=== PATIENT | female | born 1995 | race African-American/Black ===

== ENCOUNTER → 2018-04-13 | Outpatient (CLI) | payer SELFPAY ==
--- NOTE | 2018-04-13 14:51 | RADIOLOGY REPORT (SQ) ---
EXAM DESCRIPTION: U/S [id number] TRNABD 1GES W/ODOP COMPLETED DATE/TIME: 04/13/2018 2:36 pm REASON FOR STUDY: Z34.01 ENCOUNTER FOR SUPERVISION OF NORMAL FIRST , FIRST TRIMESTER Z34.01 ENCNTR FOR SUPRVSN OF NORMAL FIRST PREG, FIRST TRIMES COMPARISON: None. TECHNIQUE: Transabdominal static and realtime grayscale images acquired of the pelvis. Additional se lected spectral and color Doppler images recorded. All images stored on PACs. bHCG: Not available CLINICAL DATES: Last menses 02/01/2018 LIMITATIONS: None. FINDINGS: FETUS: Single Living intrauterine . ULTRASOUND EGA: 10 weeks 5 days ULTRASOUND ADRIEL: 11/04/2018 EFW: Not applicable less than 20 weeks. CRL: 3.9 cm FHR: 180 beats per minute. SURVEY: Too early to assess. AMNIOTIC FLUID: Adequate amount. PLACENTA: Not yet developed due to early gestation. SUBCHORIONIC BLEED: No SIZE OF BLEED: Not applicable. UTERUS: No masses. No anomalies. Uterus is 9.4 x 6.7 x 5.7 cm in size CERVICAL LENGTH: 4 cm Closed. RIGHT ADNEXA: Ovary not identified due to poor acoustical window. No adnexal free fluid. No adnexal masses. LEFT ADNEXA: Ovary not identified due to poor acoustical window. No adnexal free fluid. No adnexal masses. FREE FLUID: None. OTHER: No other significant finding. IMPRESSION: LIVING INTRAUTERINE . EGA 10 weeks 5 days Trimester of : First - 0 to 13 weeks. TECHNICAL DOCUMENTATION: JOB ID: [id number] [email or web address]- All Rights Reserved rev Reading location - IP/workstation name: [facility]
== END ==
LOC: RAD 14:01
PROVIDERS: ATTEND Nurse Practitioner
DX: Z34.01 Encounter for supervision of normal first pregnancy, first trimester (principal)
CPT/HCPCS: 76801

== ENCOUNTER 2018-04-16 12:56 | Emergency (ER) | payer MEDICAID ==
[2018-04-16 13:04] VITALS: BP 147/86
--- NOTE | 2018-04-16 14:20 | ER Document Report ---
ED ENT - General Chief Complaint: Ear Pain Stated Complaint: LEFT EAR IRRITATION Time Seen by Provider: 04/16/18 14:05 Mode of Arrival: Ambulatory Notes: 22-year-old female presents to ED for decreased hearing in her left ear. She states it feels like it popped but when she tried to pop it with her nose and did not clear all the way. She states she has been using Q-tips. She states she is also had runny nose cough and congestion but she cannot take cold medicine because she is 10 weeks . Patient is alert and oriented respirations regular and unlabored speaking in clear full sentences and walks with a even steady gait. Patient is in no acute distress and denies any discomfort at this time. TRAVEL OUTSIDE OF THE [place] IN LAST 30 DAYS: No - HPI Patient complains to provider of: Ear problem, Nose problem Onset: Other - Cough and cold symptoms for "a little while " Onset/Duration: Gradual Quality of pain: Achy Severity: Mild Pain Level: 1 Context: Recent Illness Location of pain: Ears - Clogged ear with decreased hearing to the clogged ear Similar symptoms previously: Yes Recently seen / treated by doctor: Yes Past Medical History - General Information source: Patient - Social History Smoking Status: Never Smoker Cigarette use (# per day): No Chew tobacco use (# tins/day): No Smoking Education Provided: No Frequency of alcohol use: None Drug Abuse: None Lives with: Alone Family History: None Patient has suicidal ideation: No Patient has homicidal ideation: No - Past Medical History Cardiac Medical History: Reports: None Pulmonary Medical History: Reports: None EENT Medical History: Reports: None Neurological Medical History: Reports: None Endocrine Medical History: Reports: None Renal/ Medical History: Reports: None Malignancy Medical History: Reports: None GI Medical History: Reports: None Musculoskeletal Medical History: Reports None Skin Medical History: Reports None Psychiatric Medical History: Reports: None Traumatic Medical History: Reports: None Infectious Medical History: Reports: None Surgical Hx: Negative Past Surgical History: Reports: None - Immunizations Immunizations up to date: Yes Hx Diphtheria, Pertussis, Tetanus Vaccination: Yes Review of Systems - Review of Systems Notes: REVIEW OF SYSTEMS: CONSTITUTIONAL : Denies fever, chills, or sweats. Mild cold symptoms EENT: Denies eye, ear, throat, or mouth pain or symptoms. Denies throat, tongue, or mouth swelling or difficulty swallowing. Patient states she has had some nasal drainage and congestion but she cannot take all medicine as she is 10 weeks . She states she has had clogged ears and she tried to pop her ears and it did not only cleared a little bit. She states she has been using Q-tips in her ears. CARDIOVASCULAR: Denies chest pain. Denies palpitations or racing or irregular heart beat. Denies ankle edema. RESPIRATORY: Denies cough, cold, or chest congestion. Denies shortness of breath, difficulty breathing, or wheezing. GASTROINTESTINAL: Denies abdominal pain or distention. Denies nausea, vomiting , or diarrhea. Denies blood in vomitus, stools, or per rectum. Denies black, tarry stools. Denies constipation. GENITOURINARY: Denies difficulty urinating, painful urination, burning, frequency, blood in urine, or discharge. FEMALE GENITOURINARY: Denies vaginal bleeding, heavy or abnormal periods, irregular periods. Denies vaginal discharge or odor. MUSCULOSKELETAL: Denies back or neck pain or stiffness. Denies joint pain or swelling. SKIN: Denies rash, lesions or sores. HEMATOLOGIC : Denies easy bruising or bleeding. LYMPHATIC: Denies swollen, enlarged glands. NEUROLOGICAL: Denies confusion or altered mental status. Denies passing out or loss of consciousness. Denies dizziness or lightheadedness. Denies headache. Denies weakness or paralysis or loss of use of either side. Denies problems with gait or speech. Denies sensory loss, numbness, or tingling. Denies seizures. PHYSICAL EXAMINATION: GENERAL: Well-appearing, well-nourished and in no acute distress. HEAD: Atraumatic, normocephalic. EYES: Pupils equal round and reactive to light, extraocular movements intact, conjunctiva are normal. ENT: Nares patent mild rhinorrhea with mild swelling to the nasal passage, oropharynx clear without exudates postnasal drip. Moist mucous membranes. Cerumen impaction to bilateral ears. Patient states she uses Q-tips. NECK: Normal range of motion, supple without lymphadenopathy LUNGS: Breath sounds clear to auscultation bilaterally and equal. No wheezes rales or rhonchi. HEART: Regular rate and rhythm without murmurs ABDOMEN: Soft, nontender, nondistended abdomen. No guarding, no rebound. No masses appreciated. Female : deferred Musculoskeletal: Normal range of motion, no pitting or edema. No cyanosis. NEUROLOGICAL: Cranial nerves grossly intact. Normal speech, normal gait. Normal sensory, motor exams PSYCH: Normal mood, normal affect. SKIN: Warm, Dry, normal turgor, no rashes or lesions noted. PSYCHIATRIC: Denies anxiety or stress. Denies depression, suicidal ideation, or homicidal ideation. ALL OTHER SYSTEMS REVIEWED AND NEGATIVE. Dictation was performed using [employer] voice recognition software Physical Exam - Vital signs Vitals: Temp Pulse Resp BP Pulse Ox 98.7 F 111 H 18 147/86 H 100 04/16/18 13:03 04/16/18 13:03 04/16/18 13:03 04/16/18 13:03 04/16/18 13:03 Course - Vital Signs Vital signs: Temp Pulse Resp BP Pulse Ox 98.7 F 111 H 18 147/86 H 100 04/16/18 13:03 04/16/18 13:03 04/16/18 13:03 04/16/18 13:03 04/16/18 13:03 Discharge - Discharge Clinical Impression: Impacted cerumen of both ears Condition: Stable Disposition: HOME, SELF-CARE Additional Instructions: Cerumen Impaction The physician found a severe buildup of earwax in your ear canal, called a cerumen impaction. A large plug of wax can cause earache, decreased hearing, or itching. It can even lead to infection of the outer ear. An impaction of earwax can be removed by the physician using special instruments, or can be irrigated out using a stream of water (often a little of both is required). Some less severe impactions are removed using ear drops that dissolve wax. In the future, don't get soap in your ear canal. Soap doesn't remove wax - - it simply hardens it in place. Don't use cotton swabs. These just push the wax into large clumps, where it doesn't flow out normally. Dust and smoke also contribute to wax buildup. Earwax softening drops are available without prescription, and can be used periodically. Contact the doctor if you develop decreased hearing, earache, drainage from the ear, or severe headache. If you get Colace capsules from the pharmacy you can take a nail and punctured a hole in the capsule and squeezed the juice from the capsule into your ear. Let it sit for 20-30 minutes to soften up the wax. Then flushed your ear with one half peroxide one half warm water this will make it easier to get the wax out of your ear. Please do not use Q-tips in your ear. FOLLOW-UP CARE: If you have been referred to a physician for follow-up care, call the physician s office for an appointment as you were instructed or within the next two days. If you experience worsening or a significant change in your symptoms, notify the physician immediately or return to the Emergency Department at any time for re-evaluation. Forms: Elevated Blood Pressure, Return to Work Referrals: WILDER MO APRN [NO LOCAL MD] - Follow up as needed
== END 2018-04-16 15:08 | disposition home or self-care (01) ==
LOC: ER 12:56
DX: O26.891 Other specified pregnancy related conditions, first trimester (principal); H61.23 Impacted cerumen, bilateral; R09.89 Other specified symptoms and signs involving the circulatory and respiratory systems; R05 Cough; Z3A.10 10 weeks gestation of pregnancy
CPT/HCPCS: 99282

== ENCOUNTER 2018-07-26 12:09 | Emergency (ER) | payer MEDICAID ==
[2018-07-26 12:15] VITALS: BP 152/86
--- NOTE | 2018-07-26 12:33 | ER Document Report ---
HPI - HPI Time Seen by Provider: 07/26/18 12:15 Pain Level: 2 Notes: Patient is a 24-year-old female approx 25wks who presents to the ED complaining of nasal congestion/discharge, dry nonproductive cough, body ache 3-4 days. Patient states that she is still eating and drinking without difficulties. She is still urinating normally having normal bowel movements. Patient has been using some [id number] meds for symptoms. She denies any significant past medical history including cardiopulmonary history and immunocompromised conditions aside from mild asthma which she has inhalers for. Patient denies any smoking or IV drug use. Denies any fever, current headache, neck pain, sore throat, chest pain, palpitations, syncope, shortness of breath, wheeze, dyspnea, abdominal pain, nausea/vomiting/diarrhea, urinary retention, dysuria, hematuria, or rash. - ROS Systems Reviewed and Negative: Yes All other systems reviewed and negative - CONSTITUTIONAL Constitutional: REPORTS: Fever - EENT EENT: REPORTS: Sore Throat - RESPIRATORY Respiratory: REPORTS: Coughing - REPRODUCTIVE Reproductive: DENIES: : Past Medical History - Social History Smoking Status: Never Smoker Frequency of alcohol use: None Drug Abuse: None Family History: None Patient has suicidal ideation: No Patient has homicidal ideation: No Pulmonary Medical History: Reports: Hx Asthma Renal/ Medical History: Denies: Hx Peritoneal Dialysis - Immunizations Immunizations up to date: Yes Hx Diphtheria, Pertussis, Tetanus Vaccination: Yes Vertical Provider Document - CONSTITUTIONAL Agree With Documented VS: Yes Notes: PHYSICAL EXAMINATION: GENERAL: Well-appearing, well-nourished and in no acute distress. A&Ox4. Answers questions appropriately. Moves comfortably w/o notable distress HEAD: Atraumatic, normocephalic. EYES: Pupils equal round and reactive to light, extraocular movements intact, sclera anicteric, conjunctiva are normal. ENT: EAC clear b/l. TM's intact b/l without erythema, fluid, or perforation. Nares patent and with clear discharge. oropharynx no erythema without exudates. No tonsilar hypertrophy without erythema or exudate. No palatine shift. Uvula midline. No tongue protrusion. No drooling, hoarseness, or airway compromise. Moist mucous membranes. No sinus tenderness. NECK: Normal range of motion, supple without lymphadenopathy. No rigidity/meningismus. LUNGS: Scant wheeze left side, no crackles/rhonchi. No retractions HEART: Regular rate and rhythm without murmurs, rubs, gallops. ABDOMEN: Soft, nontender, nondistended abdomen. No guarding, no rebound. Normal bowel sounds present. No CVA tenderness bilaterally. NEUROLOGICAL: Normal speech, normal gait. PSYCH: Normal mood, normal affect. SKIN: Warm, Dry, normal turgor, no rashes or lesions noted. - INFECTION CONTROL TRAVEL OUTSIDE OF THE [place] IN LAST 30 DAYS: No Course - Re-evaluation Re-evalutation: 07/26/18 12:31 Patient is an afebrile, well-hydrated, 19-year-old female who presents to the ED with acute URI, suspect viral vs influenza, but she has not had any fever so favoring other viral illness. Vitals are acceptable. PE is otherwise unrema rkable. No labs or imaging warranted at this time based on H&P. Patient has no significant cardiopulmonary or immunocompromised medical conditions. Patient's lungs are clear to auscultation bilaterally without tachycardia, hypoxia, or tachypnea. Patient is tolerating p.o. without any difficulties. Pt beyond treatment window with tamiflu. Low suspicion for any meningitis, sepsis, peritonsillar/pharyngeal abscess, respiratory compromise, severe dehydration, or other emergent systemic condition at this time. Patient is aware this condition can change from initial presentation and she needs to monitor symptoms closely. Conservative measures otherwise for symptoms. Recheck with your PCM/OBGYN in 2- 3 days. Return to the ED with any worsening/concerning symptoms otherwise as reviewed in discharge. Patient is in agreement. - Vital Signs Vital signs: Temp Pulse Resp BP Pulse Ox 97.8 F 112 H 20 152/86 H 100 07/26/18 12:14 07/26/18 12:14 07/26/18 12:14 07/26/18 12:14 07/26/18 12:14 Discharge - Discharge Clinical Impression: Acute URI Condition: Stable Disposition: HOME, SELF-CARE Additional Instructions: Maintain adequate fluid intake Use inhalers as directed tylenol as needed over the counter cold medication as needed for symptoms Humidified air may help Wash your hands regularly Wear a mask when coughing Your blood pressure is elevated and will need evaluated by OBGYN as your are F/u: with your PCM/OBGYN in 2-3 days for a recheck Return to the ED with any fever, worsening pain, chest pain, palpitations, syncope, worsening ROMEO, neck pain/stiffness, shortness of breath, wheezing, drooling, trouble swallowing/breathing, abdominal pain, n/v/d, rash, or worsening/concerning symptoms otherwise. Forms: Elevated Blood Pressure Referrals: [facility] [Provider Group] - 07/29/18
== END 2018-07-26 12:37 | disposition home or self-care (01) ==
LOC: ER 12:09
DX: O99.519 Diseases of the respiratory system complicating pregnancy, unspecified trimester (principal); J06.9 Acute upper respiratory infection, unspecified; J45.909 Unspecified asthma, uncomplicated; J02.9 Acute pharyngitis, unspecified; O26.899 Other specified pregnancy related conditions, unspecified trimester; R05 Cough; Z3A.00 Weeks of gestation of pregnancy not specified
CPT/HCPCS: 99283

== ENCOUNTER 2018-09-30 16:35 | Outpatient (CLI) | payer MEDICAID ==
[2018-09-30 17:25] LABS: ABSOLUTE BASOPHILS # (AUTO) 0.1 10^3/uL (0.0-0.2); ABSOLUTE EOSINOPHILS # (AUTO) 0.2 10^3/uL (0.0-0.6); ABSOLUTE LYMPHOCYTES (AUTO) 1.8 10^3/uL (0.5-4.7); ABSOLUTE MONOCYTES (AUTO) 1.2 10^3/uL (0.1-1.4); ABSOLUTE NEUT (AUTO) 7.6 10^3/uL (1.7-8.2); BASOPHILS % (AUTO) 0.6 % (0-2); EOSINOPHILS % (AUTO) 1.7 % (0-6); HEMATOCRIT 32.7 % (36.0-47.0); HEMOGLOBIN 10.4 g/dL (12.0-15.5); LYMPHOCYTES % (AUTO) 16.6 % (13-45); MEAN CORPUSCULAR HEMOGLOBIN 23.9 pg (27.0-33.4); MEAN CORPUSCULAR HGB CONC 31.9 g/dL (32.0-36.0); MEAN CORPUSCULAR VOLUME 75 fl (80-97); MONOCYTES % (AUTO) 10.7 % (3-13); PLATELET COUNT 325 10^3/uL (150-450); RED BLOOD COUNT 4.36 10^6/uL (3.72-5.28); RED CELL DISTRIBUTION WIDTH 14.8 % (11.5-14.0); SEGMENTED NEUTROPHILS % (AUTO) 70.4 % (42-78); TOTAL CELLS COUNTED % (AUTO) 100 %; WHITE BLOOD COUNT 10.8 10^3/uL (4.0-10.5)
--- NOTE | 2018-09-30 17:39 | Non Stress Test Report ---
Non Stress Test Datetime Report Generated by CPN: 09/30/2018 17:39 DEMOGRAPHIC EGA NST: 34.3 INDICATION Indication for Study: Ordered by Provider MONITORING Monitor Explained: Monitor Explained; Test Explained; Patient Verbalized Understanding Time on Monitor: 09/30/2018 16:50 Time off Monitor: 09/30/2018 17:37 NST Duration: 47 NST INTERVENTIONS NST Interventions: None Physician Notified NST: Dr. Jacobo BABY A: [id number] BABY A Movement : Present Contraction Frequency : occasional FHR Baseline : 150 Accelerations : 15X15 Decelerations : None Variability : Moderate 6-25bpm NST Review: Meets Criteria for Reactive NST NST Review and Verified By : Candelario BRWONE RN NST Results: Reactive NST REPORT Report Trigger: Send Report
[2018-09-30 17:42] LABS: ALANINE AMINOTRANSFERASE 20 U/L (9-52); ALBUMIN 3.8 g/dL (3.5-5.0); ALKALINE PHOSPHATASE 112 U/L (38-126); ANION GAP 11 (5-19); ASPARTATE AMINO TRANSFERASE 16 U/L (14-36); BILIRUBIN,DIRECT 0.2 mg/dL (0.0-0.4); BILIRUBIN,TOTAL 0.5 mg/dL (0.2-1.3); BLOOD UREA NITROGEN 5 mg/dL (7-20); CALCIUM 9.3 mg/dL (8.4-10.2); CARBON DIOXIDE 21 mmol/L (22-30); CHLORIDE 104 mmol/L (98-107); GLUCOSE 82 mg/dL (75-110); POTASSIUM 3.6 mmol/L (3.6-5.0); SODIUM 136.2 mmol/L (137-145); TOTAL PROTEIN 7.1 g/dL (6.3-8.2); URIC ACID 3.8 mg/dL (2.5-6.2)
[2018-09-30 17:42] LABS: APPEARANCE,URINE SLIGHTLY-CLOUDY; BILIRUBIN,URINE NEGATIVE (NEGATIVE); COLOR,URINE STRAW; GLUCOSE, URINE NEGATIVE (NEGATIVE); KETONES,URINE NEGATIVE (NEGATIVE); LEUKOCYTE ESTERASE,URINE LARGE (NEGATIVE); NITRITE,URINE NEGATIVE (NEGATIVE); PROTEIN,URINE NEGATIVE (NEGATIVE); URINE SPECIFIC GRAVITY 1.002; UROBILINOGEN,URINE NEGATIVE mg/dL (<2.0)
[2018-09-30 17:54] LABS: URINE AMPHETAMINES SCREEN NEGATIVE; URINE BARBITURATES SCREEN NEGATIVE; URINE BENZODIAZEPINES SCREEN NEGATIVE; URINE COCAINE SCREEN NEGATIVE; URINE MARIJUANA (THC) SCREEN NEGATIVE; URINE METHADONE SCREEN NEGATIVE; URINE PHENCYCLIDINE SCREEN NEGATIVE
[2018-09-30 17:58] LABS: UR PRO/CREAT RATIO RESULT 0.7 mg/mg (0.0-0.2); URINE CREATININE 25.3 mg/dL (16-327); URINE PROTEIN 17.7 mg/dL (<12)
== END 2018-09-30 18:20 | disposition home or self-care (01) ==
LOC: LC 16:35
PROVIDERS: ATTEND Obstetrics & Gynecology
PROC: 4A1HXCZ Monitoring of Products of Conception, Cardiac Rate, External Approach (ICD-10-PCS; principal; 2018-09-30)
DX: Z34.93 Encounter for supervision of normal pregnancy, unspecified, third trimester (principal); Z3A.35 35 weeks gestation of pregnancy
CPT/HCPCS: 36415; 59025; 80053; 80307; 81001; 82570; 83615; 84156; 84550; 85025

== ENCOUNTER 2018-10-03 15:18 | Outpatient (CLI) | payer MEDICAID ==
--- NOTE | 2018-10-03 17:10 | Non Stress Test Report ---
Non Stress Test Datetime Report Generated by CPN: 10/03/2018 17:09 DEMOGRAPHIC Test Number: 2 EGA NST: 34.6 INDICATION Indication for Study: Ordered by Provider Indication for Study (NST) Other: Repeat NST URINE RESULTS Urine Protein, NST: Negative MONITORING Monitor Explained: Monitor Explained; Test Explained; Patient Verbalized Understanding Time on Monitor: 10/03/2018 16:24 Time off Monitor: 10/03/2018 16:54 NST Duration: 30 NST INTERVENTIONS NST Interventions: PO Hydration; Meal Given; Reposition Patient Physician Notified NST: K. Henson CNM BABY A: [id number] BABY A Movement : Present Contraction Frequency : 0 FHR Baseline : 135 Accelerations : 15X15 Decelerations : None Variability : Moderate 6-25bpm NST Review: Meets Criteria for Reactive NST NST Review and Verified By : KAROL SAMUELS RN NST Results: Reactive NST REPORT Report Trigger: Send Report
== END 2018-10-03 17:10 | disposition home or self-care (01) ==
LOC: LC 15:18
PROVIDERS: ATTEND Obstetrics & Gynecology Gynecology
PROC: 4A1HXCZ Monitoring of Products of Conception, Cardiac Rate, External Approach (ICD-10-PCS; principal; 2018-10-03)
DX: O16.3 Unspecified maternal hypertension, third trimester (principal); Z3A.34 34 weeks gestation of pregnancy
CPT/HCPCS: 59025

== ENCOUNTER 2018-10-10 14:20 | Outpatient (CLI) | payer MEDICAID ==
--- NOTE | 2018-10-10 15:27 | Non Stress Test Report ---
Non Stress Test Datetime Report Generated by CPN: 10/10/2018 15:27 DEMOGRAPHIC EGA NST: 35.6 INDICATION Indication for Study: Chronic Hypertension; Ordered by Provider MONITORING Monitor Explained: Monitor Explained; Test Explained; Patient Verbalized Understanding Time on Monitor: 10/10/2018 14:33 Time off Monitor: 10/10/2018 15:17 NST Duration: 44 NST INTERVENTIONS NST Interventions: PO Hydration Physician Notified NST: Dr Aldridge BABY A: [id number] BABY A Movement : Present Contraction Frequency : 0 FHR Baseline : 135 Accelerations : 15X15 Decelerations : None Variability : Moderate 6-25bpm NST Review: Meets Criteria for Reactive NST NST Review and Verified By : Alexandru Medina RN NST Results: Reactive NST REPORT Report Trigger: Send Report
== END 2018-10-10 15:32 | disposition home or self-care (01) ==
LOC: LC 14:20
PROVIDERS: ATTEND Student in an Organized Health Care Education/Training Program
PROC: 4A1HXCZ Monitoring of Products of Conception, Cardiac Rate, External Approach (ICD-10-PCS; principal; 2018-10-10)
DX: O10.913 Unspecified pre-existing hypertension complicating pregnancy, third trimester (principal); Z3A.35 35 weeks gestation of pregnancy
CPT/HCPCS: 59025

== ENCOUNTER 2018-10-13 14:46 | Outpatient (CLI) | payer MEDICAID ==
--- NOTE | 2018-10-13 16:14 | Non Stress Test Report ---
Non Stress Test Datetime Report Generated by CPN: 10/13/2018 16:14 DEMOGRAPHIC EGA NST: 36.2 INDICATION Indication for Study: Chronic Hypertension MONITORING Monitor Explained: Monitor Explained; Test Explained; Patient Verbalized Understanding Time on Monitor: 10/13/2018 15:00 Time off Monitor: 10/13/2018 16:05 NST Duration: 65 NST INTERVENTIONS NST Interventions: PO Hydration Physician Notified NST: A. pacheco, CNM BABY A: [id number] BABY A Movement : Present Contraction Frequency : none FHR Baseline : 150 Accelerations : 15X15 Decelerations : None Variability : Moderate 6-25bpm NST Review: Meets Criteria for Reactive NST NST Review and Verified By : MANNY Fulton Results: Reactive NST COMMENTS NST Comments: A. Pacheco, CNM on unit reviewing strip, interpreted strip as reactive NST REPORT Report Trigger: Send Report
== END 2018-10-13 16:11 | disposition home or self-care (01) ==
LOC: LC 14:46
PROVIDERS: ATTEND Obstetrics & Gynecology Gynecology
PROC: 4A1HXCZ Monitoring of Products of Conception, Cardiac Rate, External Approach (ICD-10-PCS; principal; 2018-10-13)
DX: O10.913 Unspecified pre-existing hypertension complicating pregnancy, third trimester (principal); Z3A.36 36 weeks gestation of pregnancy

== ENCOUNTER 2018-10-20 15:14 | Outpatient (CLI) | payer MEDICAID ==
[2018-10-20 15:51] LABS: APPEARANCE,URINE CLEAR; BILIRUBIN,URINE NEGATIVE (NEGATIVE); COLOR,URINE STRAW; GLUCOSE, URINE NEGATIVE (NEGATIVE); KETONES,URINE NEGATIVE (NEGATIVE); LEUKOCYTE ESTERASE,URINE TRACE (NEGATIVE); NITRITE,URINE NEGATIVE (NEGATIVE); PROTEIN,URINE NEGATIVE (NEGATIVE); URINE SPECIFIC GRAVITY 1.005; UROBILINOGEN,URINE NEGATIVE mg/dL (<2.0)
[2018-10-20 16:19] LABS: URINE AMPHETAMINES SCREEN NEGATIVE; URINE BARBITURATES SCREEN NEGATIVE; URINE BENZODIAZEPINES SCREEN NEGATIVE; URINE COCAINE SCREEN NEGATIVE; URINE MARIJUANA (THC) SCREEN NEGATIVE; URINE METHADONE SCREEN NEGATIVE; URINE PHENCYCLIDINE SCREEN NEGATIVE
[2018-10-20 16:27] LABS: UR PRO/CREAT RATIO RESULT 0.3 mg/mg (0.0-0.2); URINE CREATININE 55.2 mg/dL (16-327); URINE PROTEIN 14.4 mg/dL (<12)
[2018-10-20 16:30] LABS: ABSOLUTE BASOPHILS # (AUTO) 0.1 10^3/uL (0.0-0.2); ABSOLUTE EOSINOPHILS # (AUTO) 0.1 10^3/uL (0.0-0.6); ABSOLUTE LYMPHOCYTES (AUTO) 1.2 10^3/uL (0.5-4.7); ABSOLUTE NEUT (AUTO) 6.6 10^3/uL (1.7-8.2); BASOPHILS % (AUTO) 0.7 % (0-2); EOSINOPHILS % (AUTO) 1.5 % (0-6); HEMATOCRIT 29.7 % (36.0-47.0); HEMOGLOBIN 9.3 g/dL (12.0-15.5); LYMPHOCYTES % (AUTO) 13.8 % (13-45); MEAN CORPUSCULAR HGB CONC 31.2 g/dL (32.0-36.0); MEAN CORPUSCULAR VOLUME 74 fl (80-97); MONOCYTES % (AUTO) 10.7 % (3-13); PLATELET COUNT 336 10^3/uL (150-450); RED BLOOD COUNT 4.04 10^6/uL (3.72-5.28); RED CELL DISTRIBUTION WIDTH 15.4 % (11.5-14.0); SEGMENTED NEUTROPHILS % (AUTO) 73.3 % (42-78); TOTAL CELLS COUNTED % (AUTO) 100 %
[2018-10-20 16:51] LABS: ALANINE AMINOTRANSFERASE 10 U/L (9-52); ALBUMIN 3.4 g/dL (3.5-5.0); ALKALINE PHOSPHATASE 101 U/L (38-126); ANION GAP 12 (5-19); ASPARTATE AMINO TRANSFERASE 18 U/L (14-36); BILIRUBIN,DIRECT 0.2 mg/dL (0.0-0.4); BILIRUBIN,TOTAL 0.6 mg/dL (0.2-1.3); BLOOD UREA NITROGEN 4 mg/dL (7-20); CALCIUM 9.1 mg/dL (8.4-10.2); CARBON DIOXIDE 23 mmol/L (22-30); CHLORIDE 104 mmol/L (98-107); GLUCOSE 72 mg/dL (75-110); POTASSIUM 3.9 mmol/L (3.6-5.0); SODIUM 138.8 mmol/L (137-145); TOTAL PROTEIN 6.2 g/dL (6.3-8.2); URIC ACID 4.4 mg/dL (2.5-6.2)
--- NOTE | 2018-10-20 19:18 | Non Stress Test Report ---
Non Stress Test Datetime Report Generated by CPN: 10/20/2018 19:18 DEMOGRAPHIC EGA NST: 37.2 INDICATION Indication for Study: Chronic Hypertension URINE RESULTS Urine Glucose - NST: Positive MONITORING Monitor Explained: Monitor Explained; Test Explained; Patient Verbalized Understanding Time on Monitor: 10/20/2018 15:33 Time off Monitor: 10/20/2018 16:40 NST Duration: 67 NST INTERVENTIONS NST Interventions: PO Hydration; Reposition Patient Physician Notified NST: P De Santiago BABY A: [id number] BABY A Movement : Present Contraction Frequency : 0 FHR Baseline : 135 Accelerations : 15X15 Variability : Moderate 6-25bpm NST Review: Meets Criteria for Reactive NST NST Review and Verified By : Kaylee Camp RNC NST Results: Reactive NST REPORT Report Trigger: Send Report
== END 2018-10-20 17:30 | disposition home or self-care (01) ==
LOC: LC 15:14
PROVIDERS: ATTEND Midwife
PROC: 4A1HXCZ Monitoring of Products of Conception, Cardiac Rate, External Approach (ICD-10-PCS; principal; 2018-10-20)
DX: O10.913 Unspecified pre-existing hypertension complicating pregnancy, third trimester (principal); Z3A.37 37 weeks gestation of pregnancy
CPT/HCPCS: 36415; 59025; 80053; 80307; 81001; 82570; 83615; 84156; 84550; 85025

== ENCOUNTER 2018-10-25 04:00 | Inpatient (IN) | payer MEDICAID ==
[2018-10-25] MEDS ORDERED: RINGERS SOLUTION,LACTATED 1,000 ML IV PRN (04:34)
[2018-10-25] MEDS ORDERED: DINOPROSTONE 10 MG VAGINAL INSERT.SR PV PRN (04:34)
[2018-10-25] MEDS ORDERED: RINGERS SOLUTION,LACTATED 300 ML IV ONE (04:34)
[2018-10-25 05:13] LABS: ABSOLUTE BASOPHILS # (AUTO) 0.1 10^3/uL (0.0-0.2); ABSOLUTE EOSINOPHILS # (AUTO) 0.2 10^3/uL (0.0-0.6); ABSOLUTE LYMPHOCYTES (AUTO) 1.6 10^3/uL (0.5-4.7); ABSOLUTE MONOCYTES (AUTO) 0.9 10^3/uL (0.1-1.4); ABSOLUTE NEUT (AUTO) 5.2 10^3/uL (1.7-8.2); EOSINOPHILS % (AUTO) 2.4 % (0-6); HEMATOCRIT 33.9 % (36.0-47.0); HEMOGLOBIN 10.7 g/dL (12.0-15.5); LYMPHOCYTES % (AUTO) 19.8 % (13-45); MEAN CORPUSCULAR HGB CONC 31.7 g/dL (32.0-36.0); MEAN CORPUSCULAR VOLUME 73 fl (80-97); MONOCYTES % (AUTO) 11.3 % (3-13); PLATELET COUNT 353 10^3/uL (150-450); RED BLOOD COUNT 4.67 10^6/uL (3.72-5.28); SEGMENTED NEUTROPHILS % (AUTO) 65.5 % (42-78); TOTAL CELLS COUNTED % (AUTO) 100 %
[2018-10-25 05:30] LABS: URINE AMPHETAMINES SCREEN NEGATIVE; URINE BARBITURATES SCREEN NEGATIVE; URINE BENZODIAZEPINES SCREEN NEGATIVE; URINE COCAINE SCREEN NEGATIVE; URINE MARIJUANA (THC) SCREEN NEGATIVE; URINE METHADONE SCREEN NEGATIVE; URINE PHENCYCLIDINE SCREEN NEGATIVE
[2018-10-25] MEDS ORDERED: DINOPROSTONE 10 MG VAGINAL INSERT.SR ONE (05:30)
[2018-10-25 05:32] LABS: APPEARANCE,URINE SLIGHTLY-CLOUDY; BILIRUBIN,URINE NEGATIVE (NEGATIVE); COLOR,URINE YELLOW; GLUCOSE, URINE NEGATIVE (NEGATIVE); KETONES,URINE NEGATIVE (NEGATIVE); LEUKOCYTE ESTERASE,URINE LARGE (NEGATIVE); NITRITE,URINE NEGATIVE (NEGATIVE); PROTEIN,URINE NEGATIVE (NEGATIVE); URINE SPECIFIC GRAVITY 1.004; UROBILINOGEN,URINE NEGATIVE mg/dL (<2.0)
[2018-10-25] MEDS ORDERED: LABETALOL HCL 200 MG TABLET ONE (05:58)
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
--- NOTE | 2018-10-25 09:21 | Warning Signs in Babies ---
VOD Warning Signs Datetime Report Generated by [facility]: 10/25/2018 09:21 VOD#[id number] -Warning Signs in Babies: Viewed with Parent(s)/Family (10/25/2018 09:20:Kehinde Berger RN)
[2018-10-25] MEDS ORDERED: ALBUTEROL SULFATE HFA (90 MCG/PUFF) 200 PUFF/8.5 GM MDI IH PRN (11:37)
[2018-10-25] MEDS ORDERED: OXYTOCIN 10 UNIT/ML VIAL ONE (12:52)
[2018-10-25] MEDS ORDERED: MISOPROSTOL 0.2 MG TABLET ONE (12:52)
[2018-10-25] MEDS ORDERED: LIDOCAINE 1% INJ-PF (10 MG/ML) 30 ML SDV ONE (12:53)
[2018-10-25] MEDS ORDERED: OXYTOCIN/NORMAL SALINE 20 UNIT/1,000 ML RTUINJ ONE (12:53)
[2018-10-25 13:35] LABS: BLOOD UREA NITROGEN 3 mg/dL (7-20); CALCIUM 9.4 mg/dL (8.4-10.2); GLUCOSE 96 mg/dL (75-110)
[2018-10-25 13:36] LABS: ALANINE AMINOTRANSFERASE 13 U/L (9-52); ALBUMIN 3.3 g/dL (3.5-5.0); ALKALINE PHOSPHATASE 107 U/L (38-126); ANION GAP 12 (5-19); ASPARTATE AMINO TRANSFERASE 19 U/L (14-36); BILIRUBIN,DIRECT 0.2 mg/dL (0.0-0.4); BILIRUBIN,TOTAL 0.7 mg/dL (0.2-1.3); CARBON DIOXIDE 19 mmol/L (22-30); CHLORIDE 106 mmol/L (98-107); POTASSIUM 3.8 mmol/L (3.6-5.0); SODIUM 136.9 mmol/L (137-145); TOTAL PROTEIN 6.4 g/dL (6.3-8.2); URIC ACID 3.7 mg/dL (2.5-6.2)
[2018-10-25] MEDS: LABETALOL HCL 200 MG TABLET PO SCH ×3 (13:52→18:11)
[2018-10-25] MEDS ORDERED: MAGNESIUM HYDROXIDE SUSP 30 ML UDCUP PO PRN (15:02)
[2018-10-25] MEDS ORDERED: DIBUCAINE 1% OINTMENT 56 GM TP PRN (15:02)
[2018-10-25] MEDS ORDERED: ACETAMINOPHEN WITH CODEINE #3 TABLET PO PRN ×2 (15:02)
[2018-10-25] MEDS ORDERED: PROMETHAZINE HCL 25 MG SUPP.RECT PR PRN (15:02)
[2018-10-25] MEDS ORDERED: ACETAMINOPHEN 650 MG SUPP.RECT PR PRN (15:02)
[2018-10-25] MEDS ORDERED: GLYCERIN/WITCH HAZEL LEAF 1 EACH MED..WIPE TP PRN (15:02)
[2018-10-25] MEDS ORDERED: PROMETHAZINE HCL INJ 25 MG/1 ML VIAL IV PRN (15:02)
[2018-10-25] MEDS ORDERED: NA PHOS,M-B/NA PHOS,DI-BA (ADULT) 133 ML ENEMA PR PRN (15:02)
[2018-10-25] MEDS ORDERED: MEASLES,MUMPS&RUBELLA VACC/PF 0.5 ML VIAL SUBCUT PRN (15:02)
[2018-10-25] MEDS ORDERED: BENZOCAINE/MENTHOL AEROSOL SPRAY 56 ML TOP PRN (15:02)
[2018-10-25] MEDS ORDERED: OXYTOCIN/NORMAL SALINE 20 UNIT/1,000 ML RTUINJ IV PRN (15:02)
[2018-10-25] MEDS ORDERED: DIPH/PERTUSS(ACELL)/TETANUS VAC/PF 0.5 ML SYR (>=10YO) IM PRN (15:02)
--- NOTE | 2018-10-25 15:04 | Warning Signs in Babies ---
VOD Warning Signs Datetime Report Generated by [facility]: 10/25/2018 15:04 VOD#[id number] -Warning Signs in Babies: Viewed with Parent(s)/Family (10/25/2018 14:50:Walker Chester RN)
[2018-10-25] MEDS ORDERED: ACETAMINOPHEN WITH CODEINE 120-12 MG/5 ML UDCUP PO PRN (15:08)
[2018-10-25] MEDS ORDERED: ACETAMINOPHEN 650 MG SUPP.RECT PR ONE (15:22)
[2018-10-25] MEDS: IBUPROFEN SUSP 100 MG/5 ML ORAL SYRINGE PO PRN (15:43)
--- NOTE | 2018-10-25 17:45 | Delivery Summary ---
Del Sum A-C Datetime Report Generated by CPN: 10/25/2018 17:45 DELIVERY PERSONNEL DELIVERY PERSONNEL: [id number] Delivery Doctor:: Haven Pacheco CNM Labor and Delivery Nurse:: Walker Chester RNtie bucker Nurse:: Kehinde Berger RN Nursery Nurse:: Portia Wang RN Leadite Man/SYSTEM MANAGER: Aline Marina, ST Additional Personnel: : Elsa Centeno RN MATERNAL INFORMATION Delivery Anesthesia: None Medications After Delivery: Pitocin Bolus-Please Comment; Pitocin Drip 20 Units/1000ml NSS Meds After Delivery Comment: Pitocin 20 units in normal saline bolusing. Maternal Complications: None Provider Comments: ASIF VIABLE MALE INFANT WITH SPONTANEOUS CRY. DORD DOUBLE CLAMPED AND CUT. SPONTANEOUS INTACT PLACENTA WITH 3VC. FIRST DEGREE LACERATION REPAIRED. MOTHER AND STABLE IN L_D#3, LABOR SUMMARY EDC: 11/08/2018 00:00 No. Babies in Womb: 1 Attempted: No Labor Anesthesia: None LABOR INFORMATION Reason for Induction: Not Applicable Onset of Labor: 10/25/2018 13:02 Complete Dilatation: 10/25/2018 14:18 Cervical Ripening Agents: Cervidil Oxytocin: N/A Group B Beta Strep: Negative Steroids Given: None Reason Steroids Not Administered: Not Applicable MEMBRANES Membranes Rupture Method: Spontaneous Rupture of Membranes: 10/25/2018 14:03 Length of Rupture (hr): 0.45 Amniotic Fluid Color: Clear Amniotic Fluid Amount: Small Amniotic Fluid Odor: Normal STAGES OF LABOR Stage 1 hr: 1 Stage 1 min: 16 Stage 2 hr: 0 Stage 2 min: 12 Stage 3 hr: 0 Stage 3 min: 6 Total Time in Labor hr: 1 Total Time in Labor min: 34 VAGINAL DELIVERY Episiotomy: None Laceration #1: Perineal; Vaginal Laceration Extension #1: First Degree Laceration Repair: Yes Laceration Repair Note: LEFT VAGINAL EXT TO PERINEUM REPAIRED UNDER LOCAL ANESTHESIA Sponge Count Correct: Yes Sharps Count Correct: Yes CSECTION DELIVERY Primary Indication: N/A Secondary Indication: N/A CSection Incidence: N/A Labor: N/A Elective: N/A CSection Incision: N/A BABY A INFORMATION Delivery Date/Time: 10/25/2018 14:30 Method of Delivery: Vaginal Born in Route : No : N/A Forceps: N/A Vacuum Extraction: N/A Shoulder Dystocia : No PRESENTATION/POSITION BABY A Presentation: Cephalic Cephalic Presentation: Vertex Vertex Position: Right Occipital Anterior Breech Presentation: N/A PLACENTA INFORMATION BABY A Placenta Delivery Time : 10/25/2018 14:36 Placenta Method of Delivery: Spontaneous Placenta Status: Delivered SCORES BABY A Heart Rate 1 min: >100 bpm Resp Effort 1 min: Good Cry Reflex Irritability 1 min: Cough or Sneeze or Pulls Away Muscle Tone 1 min: Active Motion Color 1 min: Blue/Pale Resuscitation Effort 1 min: Tactile Stimulation SCORE 1 MIN: 8 Heart Rate 5 min: >100 bpm Resp Effort 5 min: Good Cry Reflex Irritability 5 min: Cough or Sneeze or Pulls Away Muscle Tone 5 min: Active Motion Color 5 min: Body [place], Extremities Blue Resuscitation Effort 5 min: Tactile Stimulation SCORE 5 MIN: 9 INFORMATION BABY A Gestational Age at Delivery: 38.0 Gestational Status: Early Term- 37- 38.6 Weeks Outcome : Liveborn Condition : Stable Sex: Male IDENTIFICATION BABY A Verification Date/Time: 10/25/2018 14:44 ID Band Number: [id number] Mother's Name Verified: Yes Infant RN Verifying : K Henrik RN Additional Verifying Personnel: [facility] RN WEIGHT/LENGTH BABY A Birthweight (gm): 2698 Infant Weight (lb): 5 Weight (oz): 15 Length (in): 19.50 Infant Length (cm): 49.53 CORD INFORMATION BABY A No. Cord Vessels: 3 Nuchal Cord : N/A Cord Blood Taken: Yes-For Eval (Mom's Blood Type - or O+) Suction: Mouth; Nose ASSESSMENT BABY A Infant Complications: None Physical Findings at Delivery: Caput Succedaneum; Korean Spots Respirations: Appears Normal Skin to Skin: Yes Skin to Skin Time (min): 60 Quality Assurance Coordinator/ALS Called : No BABY B INFORMATION : N/A SIGNATURES Assignment: Dana Centeno MD Signature: with User ID: [email or web address] : with User ID: [email or web address] : I was personally available for consultation and serving as supervising physician for the MLP.
[2018-10-26] MEDS: IBUPROFEN SUSP 100 MG/5 ML ORAL SYRINGE PO PRN ×2 (06:42→22:04)
[2018-10-26 06:53] LABS: ABSOLUTE EOSINOPHILS # (AUTO) 0.2 10^3/uL (0.0-0.6); ABSOLUTE LYMPHOCYTES (AUTO) 2.1 10^3/uL (0.5-4.7); ABSOLUTE MONOCYTES (AUTO) 1.7 10^3/uL (0.1-1.4); ABSOLUTE NEUT (AUTO) 10.8 10^3/uL (1.7-8.2); BASOPHILS % (AUTO) 0.2 % (0-2); HEMATOCRIT 28.2 % (36.0-47.0); HEMOGLOBIN 9.1 g/dL (12.0-15.5); LYMPHOCYTES % (AUTO) 13.9 % (13-45); MEAN CORPUSCULAR HEMOGLOBIN 23.1 pg (27.0-33.4); MEAN CORPUSCULAR HGB CONC 32.1 g/dL (32.0-36.0); MEAN CORPUSCULAR VOLUME 72 fl (80-97); MONOCYTES % (AUTO) 11.7 % (3-13); PLATELET COUNT 302 10^3/uL (150-450); RED BLOOD COUNT 3.92 10^6/uL (3.72-5.28); RED CELL DISTRIBUTION WIDTH 15.9 % (11.5-14.0); SEGMENTED NEUTROPHILS % (AUTO) 73.2 % (42-78); TOTAL CELLS COUNTED % (AUTO) 100 %; WHITE BLOOD COUNT 14.8 10^3/uL (4.0-10.5)
[2018-10-26] MEDS ORDERED: BENZOCAINE/MENTHOL AEROSOL SPRAY 56 ML TOP PRN (09:00)
[2018-10-26] MEDS: LABETALOL HCL 200 MG TABLET PO SCH ×3 (09:57→18:15)
--- NOTE | 2018-10-26 10:57 | PDOC PROGRESS REPORT ---
Subjective-OB Progress Note for:: 10/26/18 Subjective: 23yo G1 now P1 s/p ppd 1. Patient ambulating and without difficulty. Pain well controlled with medication. Denies any concerns. Physical Exam (OB) Vital Signs: Temp Pulse Resp BP Pulse Ox 98.1 F 77 16 136/86 H 100 10/26/18 07:38 10/26/18 07:38 10/26/18 07:38 10/26/18 07:38 10/26/18 07:38 Intake & Output 10/25/18 10/26/18 10/27/18 06:59 06:59 06:59 Intake Total 350 Balance 350 Weight 72.575 kg - General General Appearance: Appears well In distress: None - PIH/Pre-Eclampsia DTR's: 2 + Clonus: Negative Headache: Absent Epigastric Pain: No Visual Changes: No - Episiotomy/Laceration Site Condition: Well Approximated - Lochia Lochia Amount: Small 10-25 ml Lochia Color: Rubra/Red - Abdomen Description: Soft Hernia Present: No Fundal Description: Firm, Midline Fundal Height: u/u - u/2 - Respiratory Respiratory Status: No respiratory distress - Extremities Upper extremity: Normal inspection Lower extremities: Normal inspection - Neurological Cognition: Normal Orientation: AAOx4 - Psychological Associated symptoms: Normal affect, Normal mood Objective-Diagnostic Laboratory: 10/26/18 06:20 10/25/18 12:48 10/25/18 10/26/18 12:48 06:20 WBC 14.8 H RBC 3.92 Hgb 9.1 L Hct 28.2 L MCV 72 L MCH 23.1 L MCHC 32.1 RDW 15.9 H Plt Count 302 Seg Neutrophils % 73.2 Lymphocytes % 13.9 Monocytes % 11.7 Eosinophils % 1.0 Basophils % 0.2 Absolute Neutrophils 10.8 H Absolute Lymphocytes 2.1 Absolute Monocytes 1.7 H Absolute Eosinophils 0.2 Absolute Basophils 0.0 Sodium 136.9 L Potassium 3.8 Chloride 106 Carbon Dioxide 19 L Anion Gap 12 BUN 3 L Creatinine 0.59 Est GFR ( Amer) > 60 Est GFR (Non-Af Amer) > 60 Glucose 96 Uric Acid 3.7 Calcium 9.4 Total Bilirubin 0.7 AST 19 ALT 13 Alkaline Phosphatase 107 Total Protein 6.4 Albumin 3.3 L Assessment and Plan(PN) - Assessment and Plan (1) Perineal laceration during delivery, delivered Is this a current diagnosis for this admission?: Yes Plan: routine pp care, monitor for s/s of infection (2) Obstetric vaginal laceration with perineal laceration Qualifiers: Third degree perineal laceration subtype: unspecified Is this a current diagnosis for this admission?: Yes Plan: routine pp care, monitor for s/s of infection (3) Asthma Qualifiers: Asthma complication type: unspecified Is this a current diagnosis for this admission?: Yes Plan: routine pp care (4) Chronic hypertension affecting Is this a current diagnosis for this admission?: Yes Plan: continue to monitor for s/s of post pre-e (5) Vaginal delivery Is this a current diagnosis for this admission?: Yes Plan: routine pp care (6) Anemia complicating , third trimester Is this a current diagnosis for this admission?: Yes Plan: increase dietary iron and FeSO4 BID - Time Spent with Patient Time with patient: Less than 15 minutes Medications reviewed and adjusted accordingly: Yes - Disposition Anticipated Discharge: Home Within: within 24 hours
[2018-10-27 08:21] VITALS: BP 129/82
--- NOTE | 2018-10-27 08:43 | PDOC PROGRESS REPORT ---
Subjective-OB Progress Note for:: 10/27/18 Physical Exam (OB) Vital Signs: Temp Pulse Resp BP Pulse Ox 97.8 F 67 18 129/82 H 100 10/27/18 07:44 10/27/18 07:44 10/27/18 07:44 10/27/18 07:44 10/27/18 07:44 Intake & Output 10/26/18 10/27/18 10/28/18 06:59 06:59 06:59 Intake Total 350 Balance 350 Weight 72.575 kg - PIH/Pre-Eclampsia DTR's: 2 + Clonus: Negative Headache: Absent Epigastric Pain: No Visual Changes: No - Lochia Lochia Amount: Small 10-25 ml Lochia Color: Rubra/Red - Abdomen Description: Soft, Round Hernia Present: No Bowel Sounds: Normoactive Flatus Presence: Present Stool: No Fundal Description: Firm, Midline Fundal Height: u/u - u/2 Objective-Diagnostic Laboratory: 10/26/18 06:20 10/25/18 12:48 Assessment and Plan(PN) - Time Spent with Patient Medications reviewed and adjusted accordingly: Yes - Disposition Anticipated Discharge: Home
--- NOTE | 2018-10-27 08:52 | PDOC DISCHARGE SUMMARY ---
Final Diagnosis Discharge Date: 10/27/18 - Final Diagnosis (1) Anemia complicating , third trimester Is this a current diagnosis for this admission?: Yes (2) Asthma Is this a current diagnosis for this admission?: Yes (3) Chronic hypertension affecting Is this a current diagnosis for this admission?: Yes (4) Obstetric vaginal laceration with perineal laceration Is this a current diagnosis for this admission?: Yes (5) Perineal laceration during delivery, delivered Is this a current diagnosis for this admission?: Yes (6) Vaginal delivery Is this a current diagnosis for this admission?: Yes Discharge Data - Discharge Medication Prescriptions: Ferrous Sulfate 325 mg PO BID #60 tablet. Home Medications: Albuterol Sulfate [Proventil Hfa] 1 puff PO ASDIR PRN 09/30/18 Pnv No.121/Iron/Folic Acid [ Multivitamin Tablet] 1 tab PO DAILY 09/30/18 Labetalol HCl [Normodyne 200 mg Tablet] 400 mg PO DAILY 10/10/18 Albuterol Sulfate [Proair HFA Inhalation Aerosol 8.5 gm MDI] 1 puff IH ASDIR PRN hfa.aer.ad 10/27/18 Ferrous Sulfate 325 mg PO BID #60 tablet. 10/27/18 Labetalol HCl [Normodyne 200 mg Tablet] 200 mg PO TID tablet 10/27/18 Gestational Age: 38 wks Reason(s) for Admission: Induction of Labor Procedures: Ultrasound Intrapartum Procedure(s): Spontaneous Vaginal Delivery Complication(s): Laceration-Perineal Laceration-Degree: 1st - Data Baby 1 Male at 1 minute: 8 at 5 minutes: 9 Weight: 2.693 kg Home with Mother: Yes Complications: No - Diagnosis Test Laboratory: Temp Pulse Resp BP Pulse Ox 97.8 F 67 18 129/82 H 100 10/27/18 07:44 10/27/18 07:44 10/27/18 07:44 10/27/18 07:44 10/27/18 07:44 10/25/18 10/25/18 10/26/18 04:13 04:33 06:20 RBC 4.67 3.92 Hgb 10.7 L 9.1 L Hct 33.9 L 28.2 L Urine Opiates Screen NEGATIVE - Discharge information/Instructions Discharge Activity: Activity As Tolerated, Balance Activity w/Rest, Pelvic Rest, Slowly Increase Activity, No tub bath Discharge Diet: Regular Disposition: HOME, SELF-CARE Follow up with: [facility] in: 1
[2018-10-27] MEDS: LABETALOL HCL 200 MG TABLET PO SCH (09:46)
== END 2018-10-27 13:00 | disposition home or self-care (01) | DRG 807 ==
LOC: LR 04:00 → 2S 16:52
PROVIDERS: ADMIT Obstetrics & Gynecology; ATTEND Obstetrics & Gynecology
PROC: 10E0XZZ Delivery of Products of Conception, External Approach (ICD-10-PCS; principal; 2018-10-25)
PROC: 0HQ9XZZ Repair Perineum Skin, External Approach (ICD-10-PCS; 2018-10-25)
PROC: 3E0234Z Introduction of Serum, Toxoid and Vaccine into Muscle, Percutaneous Approach (ICD-10-PCS; 2018-10-27)
DX: O10.02 Pre-existing essential hypertension complicating childbirth (principal); Z37.0 Single live birth; O99.52 Diseases of the respiratory system complicating childbirth; J45.909 Unspecified asthma, uncomplicated; O70.0 First degree perineal laceration during delivery; Z3A.38 38 weeks gestation of pregnancy; Z23 Encounter for immunization
CPT/HCPCS: 36415; 80053; 80307; 81001; 83615; 84550; 85025; 86592; 86850; 86900; 86901; 90715; J2590; J3490

== ENCOUNTER 2019-03-20 15:02 | Emergency (ER) | payer SELFPAY ==
[2019-03-20] MEDS ORDERED: NORMAL SALINE 1000 ML 1,000 ML IV ONE (15:17)
--- NOTE | 2019-03-20 15:19 | ER Document Report ---
ED Medical Screen (RME) - General Chief Complaint: Diarrhea Stated Complaint: DIARRHEA/VOMITING Time Seen by Provider: 03/20/19 15:12 Mode of Arrival: Ambulatory Information source: Patient Notes: Patient presents complaining of nausea vomiting diarrhea that started yesterday. Patient states that the vomiting has now resolved and she is only had one diarrhea bowel movement today. Patient does complain that her heart is beating fast and feels a tightness in her chest. Patient denies any cough or cold symptoms. I have greeted and performed a rapid initial assessment of this patient. A comprehensive ED assessment and evaluation of the patient, analysis of test results and completion of the medical decision making process will be conducted by additional ED providers. TRAVEL OUTSIDE OF THE [place] IN LAST 30 DAYS: No - Related Data Allergies/Adverse Reactions: No Known Allergies Allergy (Verified 10/25/18 07:42) Past Medical History Pulmonary Medical History: Reports: Hx Asthma Renal/ Medical History: Denies: Hx Peritoneal Dialysis - Immunizations Immunizations up to date: Yes Hx Diphtheria, Pertussis, Tetanus Vaccination: Yes Physical Exam - Vital signs Vitals: Temp Pulse Resp BP Pulse Ox 99.2 F 154 H 18 139/97 H 100 03/20/19 15:10 03/20/19 15:10 03/20/19 15:10 03/20/19 15:10 03/20/19 15:10 - Cardiovascular Rhythm: Tachycardia Heart sounds: S1 appreciated, S2 appreciated Course - Re-evaluation Re-evalutation: 03/20/19 15:18 piano case maker Advised the patient status and need for rhythm. Provider advised to send patient through [place] [facility]. - Vital Signs Vital signs: Temp Pulse Resp BP Pulse Ox 99.2 F 154 H 18 139/97 H 100 03/20/19 15:10 03/20/19 15:10 03/20/19 15:10 03/20/19 15:10 03/20/19 15:10
[2019-03-20 15:47] LABS: ABSOLUTE BASOPHILS # (AUTO) 0.1 10^3/uL (0.0-0.2); ABSOLUTE LYMPHOCYTES (AUTO) 1.2 10^3/uL (0.5-4.7); ABSOLUTE MONOCYTES (AUTO) 1.5 10^3/uL (0.1-1.4); ABSOLUTE NEUT (AUTO) 6.4 10^3/uL (1.7-8.2); BASOPHILS % (AUTO) 0.8 % (0-2); EOSINOPHILS % (AUTO) 0.5 % (0-6); HEMATOCRIT 38.3 % (36.0-47.0); HEMOGLOBIN 12.2 g/dL (12.0-15.5); LYMPHOCYTES % (AUTO) 12.8 % (13-45); MEAN CORPUSCULAR HEMOGLOBIN 22.4 pg (27.0-33.4); MEAN CORPUSCULAR HGB CONC 31.8 g/dL (32.0-36.0); MEAN CORPUSCULAR VOLUME 70 fl (80-97); MONOCYTES % (AUTO) 16.6 % (3-13); PLATELET COUNT 335 10^3/uL (150-450); RED BLOOD COUNT 5.44 10^6/uL (3.72-5.28); SEGMENTED NEUTROPHILS % (AUTO) 69.3 % (42-78); TOTAL CELLS COUNTED % (AUTO) 100 %; WHITE BLOOD COUNT 9.2 10^3/uL (4.0-10.5)
--- NOTE | 2019-03-20 16:00 | RADIOLOGY REPORT (SQ) ---
EXAM DESCRIPTION: CHEST 2 VIEWS COMPLETED DATE/TIME: 03/20/2019 3:48 pm REASON FOR STUDY: tachycardia COMPARISON: PA and lateral views of the chest from 01/29/2019. EXAM PARAMETERS: NUMBER OF VIEWS: two views TECHNIQUE: Digital Frontal and Lateral radiographic views of the chest acquired. RADIATION DOSE: NA LIMITATIONS: none FINDINGS: LUNGS AND PLEURA: No consolidation, pleural effusion or pneumothorax. MEDIASTINUM AND HILAR STRUCTURES: No mediastinal or hilar contour abnormality. HEART AND VASCULAR STRUCTURES: The cardiac silhouette and pulmonary vasculature are within normal stone its. BONES: No acute findings. HARDWARE: None. OTHER: No other finding. IMPRESSION: No acute cardiopulmonary process. TECHNICAL DOCUMENTATION: JOB ID: [id number] [employer] app- All Rights Reserved Reading location - IP/workstation name: [email or web address]
[2019-03-20 16:06] LABS: ALBUMIN 5.1 g/dL (3.5-5.0); ALKALINE PHOSPHATASE 77 U/L (38-126); ANION GAP 15 (5-19); ASPARTATE AMINO TRANSFERASE 22 U/L (14-36); BILIRUBIN,TOTAL 1.1 mg/dL (0.2-1.3); BLOOD UREA NITROGEN 11 mg/dL (7-20); CALCIUM 10.5 mg/dL (8.4-10.2); CARBON DIOXIDE 20 mmol/L (22-30); CHLORIDE 103 mmol/L (98-107); GLUCOSE 105 mg/dL (75-110); POTASSIUM 3.4 mmol/L (3.6-5.0); TOTAL PROTEIN 8.7 g/dL (6.3-8.2)
[2019-03-20] MEDS ORDERED: RINGERS SOLUTION,LACTATED 1,000 ML IV ONE (16:27)
[2019-03-20] MEDS ORDERED: POTASSIUM CHLORIDE 10 MEQ CAPSULE.ER PO ONE (16:27)
[2019-03-20] MEDS ORDERED: POTASSIUM CHLORIDE 20 MEQ PACKET PO ONE (17:17)
[2019-03-20 17:46] LABS: APPEARANCE,URINE CLEAR; BILIRUBIN,URINE SMALL (NEGATIVE); COLOR,URINE YELLOW; GLUCOSE, URINE NEGATIVE (NEGATIVE); KETONES,URINE 100 mg/dL (NEGATIVE); PROTEIN,URINE 30 mg/dL (NEGATIVE)
[2019-03-20 17:47] LABS: URINE SPECIFIC GRAVITY 1.026
[2019-03-20 17:56] LABS: URINE AMPHETAMINES SCREEN NEGATIVE; URINE BARBITURATES SCREEN NEGATIVE; URINE BENZODIAZEPINES SCREEN NEGATIVE; URINE COCAINE SCREEN NEGATIVE; URINE MARIJUANA (THC) SCREEN NEGATIVE; URINE METHADONE SCREEN NEGATIVE; URINE PHENCYCLIDINE SCREEN NEGATIVE
--- NOTE | 2019-03-20 19:11 | ER Document Report ---
ED GI/ - General Chief Complaint: Nausea/Vomiting/Diarrhea Stated Complaint: DIARRHEA/VOMITING Time Seen by Provider: 03/20/19 15:12 Mode of Arrival: Ambulatory Notes: Patient is an otherwise healthy 23-year-old female presents to the emergency department for 2 episodes of vomiting and 6 episodes of diarrhea since last evening. Patient's denying any blood in her emesis or diarrhea. States she no longer feels nauseated but just feels "tired." Patient's denying any abdominal pain, denies any dysuria or vaginal discharge. Patient was noted to be tachycardic upon initial assessment. She has been treated with 2 L of fluid in the emergency department. Is no longer tachycardic and voices she feels "so much better." TRAVEL OUTSIDE OF THE [place] IN LAST 30 DAYS: No - Related Data Allergies/Adverse Reactions: No Known Allergies Allergy (Verified 10/25/18 07:42) Home Medications: albuterol Past Medical History - General Information source: Patient - Social History Smoking Status: Never Smoker Chew tobacco use (# tins/day): No Frequency of alcohol use: None Drug Abuse: None Family History: None Patient has suicidal ideation: No Patient has homicidal ideation: No - Past Medical History Cardiac Medical History: Reports: Hx Hypertension Pulmonary Medical History: Reports: Hx Asthma Renal/ Medical History: Denies: Hx Peritoneal Dialysis - Immunizations Immunizations up to date: Yes Hx Diphtheria, Pertussis, Tetanus Vaccination: Yes Review of Systems - Review of Systems Constitutional: denies: Fever EENT: No symptoms reported Cardiovascular: No symptoms reported Respiratory: No symptoms reported Gastrointestinal: See HPI Genitourinary: See HPI Female Genitourinary: See HPI Musculoskeletal: No symptoms reported Skin: No symptoms reported Hematologic/Lymphatic: No symptoms reported Neurological/Psychological: See HPI Physical Exam - Vital signs Vitals: Temp Pulse Resp BP Pulse Ox 99.2 F 154 H 18 139/97 H 100 03/20/19 15:10 03/20/19 15:10 03/20/19 15:10 03/20/19 15:10 03/20/19 15:10 - Notes Notes: GENERAL: Alert, interacts well. No acute distress. HEAD: Normocephalic, atraumatic. EYES: Pupils equal, round, and reactive to light. Extraocular movements intact. ENT: Oral mucosa moist, tongue midline. NECK: Full range of motion. Supple. Trachea midline. LUNGS: Clear to auscultation bilaterally, no wheezes, rales, or rhonchi. No respiratory distress. HEART: Regular rate and rhythm. No murmur ABDOMEN: Soft, non-tender. Non-distended. Bowel sounds present in all 4 quadrants. EXTREMITIES: Moves all 4 extremities spontaneously. No edema, normal radial and dorsalis pedis pulses bilaterally. No cyanosis. BACK: no cervical, thoracic, lumbar midline tenderness. No saddle anesthesia, normal distal neurovascular exam. No CVA tenderness noted bilaterally. NEUROLOGICAL: Alert and oriented x3. Normal speech. cranial nerves II through XII grossly intact PSYCH: Normal affect, normal mood. SKIN: Warm, dry, normal turgor. No rashes or lesions noted. Course - Re-evaluation Re-evalutation: 03/20/19 19:10 Laboratory 03/20/19 03/20/19 03/20/19 15:35 15:35 15:35 WBC 9.2 RBC 5.44 H Hgb 12.2 Hct 38.3 MCV 70 L MCH 22.4 L MCHC 31.8 L RDW 18.0 H Plt Count 335 Lymph % (Auto) 12.8 L [place] % (Auto) 16.6 H Eos % (Auto) 0.5 Baso % (Auto) 0.8 Absolute Neuts (auto) 6.4 Absolute Lymphs (auto) 1.2 Absolute Monos (auto) 1.5 H Absolute Eos (auto) 0.0 Absolute Basos (auto) 0.1 Seg Neutrophils % 69.3 Sodium 137.9 Potassium 3.4 L Chloride 103 Carbon Dioxide 20 L Anion Gap 15 BUN 11 Creatinine 0.80 Est GFR ( Amer) > 60 Est GFR (MDRD) Non-Af > 60 Glucose 105 Calcium 10.5 H Total Bilirubin 1.1 Direct Bilirubin 0.0 Neonat Total Bilirubin Not Reportable Neonat Direct Bilirubin Not Reportable Neonat Indirect Bili Not Reportable AST 22 ALT 15 Alkaline Phosphatase 77 Total Protein 8.7 H Albumin 5.1 H TSH 0.20 L Free T4 Serum HCG, Qual Urine Color Urine Appearance Urine pH Ur Specific Dorothy Urine Protein Urine Glucose (UA) Urine Ketones Urine Blood Urine Nitrite (Reflex) Urine Bilirubin Urine Urobilinogen Leukocyte Esterase Rfl Urine RBC (Auto) Urine Bacteria (Auto) Urine WBC (Reflex) Squamous Epi Cells Auto Urine Mucus (Auto) Urine Ascorbic Acid Urine Opiates Screen Urine Methadone Screen Ur Barbiturates Screen Ur Phencyclidine Scrn Ur Amphetamines Screen U Benzodiazepines Scrn Urine Cocaine Screen U Marijuana (THC) Screen 03/20/19 03/20/19 03/20/19 15:35 15:35 17:04 WBC RBC Hgb Hct MCV MCH MCHC RDW Plt Count Lymph % (Auto) [place] % (Auto) Eos % (Auto) Baso % (Auto) Absolute Neuts (auto) Absolute Lymphs (auto) Absolute Monos (auto) Absolute Eos (auto) Absolute Basos (auto) Seg Neutrophils % Sodium Potassium Chloride Carbon Dioxide Anion Gap BUN Creatinine Est GFR ( Amer) Est GFR (MDRD) Non-Af Glucose Calcium Total Bilirubin Direct Bilirubin Neonat Total Bilirubin Neonat Direct Bilirubin Neonat Indirect Bili AST ALT Alkaline Phosphatase Total Protein Albumin TSH Free T4 1.51 Serum HCG, Qual NEGATIVE Urine Color YELLOW Urine Appearance CLEAR Urine pH 6.0 Ur Specific Dorothy 1.026 Urine Protein 30 H Urine Glucose (UA) NEGATIVE Urine Ketones 100 H Urine Blood NEGATIVE Urine Nitrite (Reflex) NEGATIVE Urine Bilirubin SMALL H Urine Urobilinogen 2.0 H Leukocyte Esterase Rfl TRACE H Urine RBC (Auto) 2 Urine Bacteria (Auto) TRACE Urine WBC (Reflex) 4 Squamous Epi Cells Auto 7 Urine Mucus (Auto) MANY Urine Ascorbic Acid NEGATIVE Urine Opiates Screen Urine Methadone Screen Ur Barbiturates Screen Ur Phencyclidine Scrn Ur Amphetamines Screen U Benzodiazepines Scrn Urine Cocaine Screen U Marijuana (THC) Screen 03/20/19 17:04 WBC RBC Hgb Hct MCV MCH MCHC RDW Plt Count Lymph % (Auto) [place] % (Auto) Eos % (Auto) Baso % (Auto) Absolute Neuts (auto) Absolute Lymphs (auto) Absolute Monos (auto) Absolute Eos (auto) Absolute Basos (auto) Seg Neutrophils % Sodium Potassium Chloride Carbon Dioxide Anion Gap BUN Creatinine Est GFR ( Amer) Est GFR (MDRD) Non-Af Glucose Calcium Total Bilirubin Direct Bilirubin Neonat Total Bilirubin Neonat Direct Bilirubin Neonat Indirect Bili AST ALT Alkaline Phosphatase Total Protein Albumin TSH Free T4 Serum HCG, Qual Urine Color Urine Appearance Urine pH Ur Specific Dorothy Urine Protein Urine Glucose (UA) Urine Ketones Urine Blood Urine Nitrite (Reflex) Urine Bilirubin Urine Urobilinogen Leukocyte Esterase Rfl Urine RBC (Auto) Urine Bacteria (Auto) Urine WBC (Reflex) Squamous Epi Cells Auto Urine Mucus (Auto) Urine Ascorbic Acid Urine Opiates Screen NEGATIVE Urine Methadone Screen NEGATIVE Ur Barbiturates Screen NEGATIVE Ur Phencyclidine Scrn NEGATIVE Ur Amphetamines Screen NEGATIVE U Benzodiazepines Scrn NEGATIVE Urine Cocaine Screen NEGATIVE U Marijuana (THC) Screen NEGATIVE Chest X-Ray 03/20/19 15:16 IMPRESSION: No acute cardiopulmonary process. 03/20/19 19:11 Patient's labs show no signs of leukocytosis, she does have decrease in her potassium, replaced in the emergency department. Her TSH was noted to be low although her T4 is within normal limits. I discussed with her close follow-up with primary care provider for continued evaluation. Patient's urine shows no signs of infection but does have an elevated specific gravity at 1.026 which could be dehydration. Discussed continued hydration at home to include Pedialyte and Gatorade. Patient voices she does feel a lot better after treatments in the emergency department. Has had no further episodes of vomiting or diarrhea. Patient stable for discharge. - Vital Signs Vital signs: Temp Pulse Resp BP Pulse Ox 98.6 F 115 H 13 140/89 H 100 03/20/19 17:06 03/20/19 16:00 03/20/19 17:10 03/20/19 17:10 03/20/19 17:10 - Laboratory Result Diagrams: 03/20/19 15:35 03/20/19 15:35 Laboratory results interpreted by me: 03/20/19 03/20/19 03/20/19 15:35 15:35 15:35 RBC 5.44 H MCV 70 L MCH 22.4 L MCHC 31.8 L RDW 18.0 H Lymph % (Auto) 12.8 L [place] % (Auto) 16.6 H Absolute Monos (auto) 1.5 H Potassium 3.4 L Carbon Dioxide 20 L Calcium 10.5 H Total Protein 8.7 H Albumin 5.1 H TSH 0.20 L Urine Protein Urine Ketones Urine Bilirubin Urine Urobilinogen Leukocyte Esterase Rfl 03/20/19 17:04 RBC MCV MCH MCHC RDW Lymph % (Auto) [place] % (Auto) Absolute Monos (auto) Potassium Carbon Dioxide Calcium Total Protein Albumin TSH Urine Protein 30 H Urine Ketones 100 H Urine Bilirubin SMALL H Urine Urobilinogen 2.0 H Leukocyte Esterase Rfl TRACE H Discharge - Discharge Clinical Impression: Nausea vomiting and diarrhea, Dehydration Condition: Stable Disposition: HOME, SELF-CARE Instructions: Antinausea Medication ([facility]), Diarrhea, Nonspecific ([facility]), Intravenous (IV) Fluids ([facility]), Vomiting ([facility]) Additional Instructions: As we discussed you have been seen and treated in the emergency department for nausea, vomiting, diarrhea. Your labs do reveal you are dehydrated. Please make sure you continue to drink [id number] Pedialyte or Gatorade. Please also make sure you follow-up with your primary care provider for continued evaluation of your laboratory testing as we discussed. I have provided phone numbers for a provider and to the 2 clinics we spoke about. Please return to the emergency room for any concerns. Prescriptions: Ondansetron [Zofran Odt 4 mg Tablet] 1 tab PO Q6 PRN #10 tab.rapdis PRN Reason: For Nausea/Vomiting Forms: Return to Work Referrals: ANATOLY LUBIN MD [ACTIVE STAFF] - Follow up as needed [facility] [Provider Group] - Follow up as needed [facility] [Provider Group] - Follow up as needed
[2019-03-20 19:24] VITALS: BP 137/89
--- NOTE | 2019-03-20 19:45 | EKG REPORT ---
SEVERITY:- ABNORMAL ECG - SINUS TACHYCARDIA PROBABLE LEFT ATRIAL ABNORMALITY BORDERLINE Q WAVES IN INFERIOR LEADS DIFFUSE NONSPECIFIC ST-T CHANGES : Confirmed by: Pepe Moyer MD 20-Mar-2019 19:44:30
== END 2019-03-20 19:31 | disposition home or self-care (01) ==
LOC: ER 15:02
DX: R11.2 Nausea with vomiting, unspecified (principal); R19.7 Diarrhea, unspecified; E86.0 Dehydration; R00.0 Tachycardia, unspecified; R53.83 Other fatigue; I10 Essential (primary) hypertension; J45.909 Unspecified asthma, uncomplicated
CPT/HCPCS: 93005; 99284; 96360; 96361; 36415; 87086; 84439; 84443; 84703; 85025; 80053; 81001; 80307; 71046; 93010; J7030; J7120; J3490

== ENCOUNTER 2019-10-15 21:50 | Emergency (ER) | payer SELFPAY ==
[2019-10-15 21:56] VITALS: BP 146/87
[2019-10-15] MEDS ORDERED: FAMOTIDINE 20 MG TABLET PO ONE (22:03)
[2019-10-15] MEDS ORDERED: DEXAMETHASONE SOD PHOS INJ 10 MG/1 ML VIAL IM ONE (22:03)
[2019-10-15] MEDS ORDERED: DIPHENHYDRAMINE HCL 50 MG/ML VIAL IM ONE (22:03)
--- NOTE | 2019-10-15 22:07 | ER Document Report ---
HPI - HPI Time Seen by Provider: 10/15/19 22:03 Pain Level: Denies Notes: CHIEF COMPLAINT: Hives HPI: 24-year-old female presenting for evaluation of hives on the neck, left chest wall and back. No definitive known allergic contacts. No new foods. No new medications. No definitive item identified as causing the reaction. No shortness of breath. No difficulty swallowing. No difficulty speaking. Use Benadryl cream on the hives of the neck with improvement in the itching ROS: See HPI - all other systems were reviewed and are otherwise negative Constitutional: no fever Eyes: no drainage, no blurred vision ENT: no runny nose, no sore throat Cardiovascular: no chest pain Resp: no SOB, no cough GI: no vomiting, no diarrhea, no abdominal pain : no dysuria Integumentary: no rash Allergy: Positive hives Musculoskeletal: no extremity pain or swelling Neurological: no numbness/tingling, no weakness MEDICATIONS: I agree with the patient medications as charted by the RN. ALLERGIES: I agree with the allergies as charted by the RN. PAST MEDICAL HISTORY/PAST SURGICAL HISTORY: Reviewed and agree as charted by RN. SOCIAL HISTORY: Reviewed and agree as charted by RN. FAMILY HISTORY: No significant familial comorbid conditions directly related to patient complaint EXAM: Reviewed vital signs as charted by RN. CONSTITUTIONAL: Alert and oriented and responds appropriately to questions. Well-appearing; well-nourished HEAD: Normocephalic; atraumatic EYES: PERRL; Conjunctivae clear, sclerae non-icteric ENT: normal nose; no rhinorrhea; moist mucous membranes; pharynx without lesions noted, no uvula edema or deviation, no tonsillar hypertrophy, phonation normal. No angioedema NECK: Supple without meningismus; non-tender; no cervical lymphadenopathy, no masses. No stridor CARD: RRR; no murmurs, no clicks, no rubs, no gallops; symmetric distal pulses RESP: Normal chest excursion without splinting or tachypnea; breath sounds clear and equal bilaterally; no wheezes, no rhonchi, no rales, pulse oximetry 98% on room air not hypoxic ABD/GI: Normal bowel sounds; non-distended; soft, non-tender, no rebound, no guarding; no palpable organomegaly or masses. BACK: The back appears normal and is non-tender to palpation, there is no CVA tenderness EXT: Normal ROM in all joints; non-tender to palpation; no cyanosis, no effusions, no edema SKIN: Normal color for age and race; warm; dry; good turgor; urticarial lesions are noted on the left lateral neck, left lateral chest wall in the midaxillary line and left thoracic back NEURO: Moves all extremities equally; Motor and sensory function intact PSYCH: The patient's mood and manner are appropriate. Grooming and personal hygiene are appropriate. MDM: 24-year-old female with urticaria. She is requesting injectable medications versus pills. Will give Decadron in the emergency department keep patient on a short course of steroids and antihistamines with return instructions - REPRODUCTIVE Reproductive: DENIES: : Past Medical History - Social History Smoking Status: Never Smoker Family History: None Patient has homicidal ideation: No - Past Medical History Cardiac Medical History: Reports: Hx Hypertension Pulmonary Medical History: Reports: Hx Asthma Renal/ Medical History: Denies: Hx Peritoneal Dialysis - Immunizations Immunizations up to date: Yes Hx Diphtheria, Pertussis, Tetanus Vaccination: Yes Vertical Provider Document - INFECTION CONTROL TRAVEL OUTSIDE OF THE [place] IN LAST 30 DAYS: No Course - Vital Signs Vital signs: Temp Pulse Resp BP Pulse Ox 97.4 F 104 H 16 146/87 H 100 10/15/19 21:59 10/15/19 21:55 10/15/19 21:55 10/15/19 21:55 10/15/19 21:55 Discharge - Discharge Clinical Impression: Urticaria Condition: Stable Disposition: HOME, SELF-CARE Additional Instructions: 1. take the medications as prescribed 2. take Benadryl 25-50 mg three times daily for 3-4 days 3. follow up recheck with PCP for further evaluation and treatment, call for appt. 4. return for any shortness of breath or worsening rash or condition Prescriptions: Prednisone [Deltasone 20 mg Tablet] 2 tab PO DAILY 5 Days #10 tablet Famotidine [Pepcid 20 mg Tablet] 20 mg PO BID #12 tablet
== END 2019-10-15 22:28 | disposition home or self-care (01) ==
LOC: ER 21:50
DX: L50.9 Urticaria, unspecified (principal); I10 Essential (primary) hypertension; J45.909 Unspecified asthma, uncomplicated
CPT/HCPCS: 99282; 96372; J1200; J1100

== ENCOUNTER 2019-10-16 22:05 | Emergency (ER) | payer SELFPAY ==
[2019-10-16] MEDS ORDERED: NORMAL SALINE 1000 ML 1,000 ML IV ONE (22:23)
[2019-10-16] MEDS ORDERED: FAMOTIDINE INJ/PF 20 MG/2 ML SDV IV ONE (22:29)
[2019-10-16] MEDS ORDERED: DIPHENHYDRAMINE HCL 50 MG/ML VIAL IV ONE (22:30)
[2019-10-16] MEDS ORDERED: LORAZEPAM INJ 2 MG/1 ML VIAL IV ONE (22:30)
--- NOTE | 2019-10-16 22:32 | ER Document Report ---
ED Allergic Reaction - General Mode of Arrival: Ambulatory Information source: Patient TRAVEL OUTSIDE OF THE [place] IN LAST 30 DAYS: No - HPI Onset: Yesterday Onset/Duration: Worse Quality of pain: No pain Skin rash / itching: Trunk, Extremities, "Hives" Associated symptoms: None Similar symptoms previously: Yes Recently seen / treated by doctor: Yes - Related Data Home Medications: albuterol <TIMOTEO DOWNING - Last Filed: 10/16/19 23:07> <RONEY DNOOVAN - Last Filed: 10/17/19 00:58> - General Chief Complaint: Hives Stated Complaint: RASH Time Seen by Provider: 10/16/19 22:18 Notes: Patient presents complaining of rash that started yesterday. Patient was seen in the emergency department yesterday and started on Pepcid as well as steroids. Patient states she finally picked up some Benadryl took 25 mg of Benadryl this evening. Patient denies any new foods or detergents or any known allergens. Patient denies any difficulty breathing or swallowing. Patient states that she feels very anxious being in the hospital and that is causing her to have a fast heart rate. (TIMOTEO DOWNING) - Related Data Allergies/Adverse Reactions: No Known Allergies Allergy (Verified 10/25/18 07:42) Past Medical History - General Information source: Patient - Social History Smoking Status: Never Smoker Frequency of alcohol use: None Drug Abuse: None Occupation: Foodservice Lives with: Spouse/Significant other Family History: None Patient has homicidal ideation: No Pulmonary Medical History: Reports: Hx Asthma Renal/ Medical History: Denies: Hx Peritoneal Dialysis Past Surgical History: Reports: Other - Skin graft - Immunizations Immunizations up to date: Yes Hx Diphtheria, Pertussis, Tetanus Vaccination: Yes <TIMOTEO DOWNING - Last Filed: 10/16/19 23:07> Review of Systems - Review of Systems Constitutional: No symptoms reported. denies: Fever, Recent illness EENT: No symptoms reported Cardiovascular: Heart racing. denies: Chest pain Respiratory: No symptoms reported. denies: Cough, Short of breath Gastrointestinal: No symptoms reported. denies: Nausea, Vomiting Genitourinary: No symptoms reported Female Genitourinary: No symptoms reported Musculoskeletal: No symptoms reported Skin: Rash Hematologic/Lymphatic: No symptoms reported Neurological/Psychological: Anxiety <CHANGTIMOTEO - Last Filed: 10/16/19 23:07> Physical Exam - General General appearance: Appears well, Alert, Anxious In distress: None - HEENT Head: Normocephalic, Atraumatic Eyes: Normal Conjunctiva: Normal Nasal: Normal Mouth/Lips: Normal. No: Angioedema Pharynx: Normal Neck: Normal, Supple. No: Lymphadenopathy - Respiratory Respiratory status: No respiratory distress Chest status: Nontender Breath sounds: Normal Chest palpation: Normal - Cardiovascular Rhythm: Tachycardia Heart sounds: S1 appreciated, S2 appreciated - Back Back: Normal, Nontender - Extremities General upper extremity: Normal inspection, Normal ROM General lower extremity: Normal inspection, Normal ROM - Neurological Neuro grossly intact: Yes Cognition: Normal Haskell Coma Scale Eye Opening: Spontaneous Sharon Coma Scale Verbal: Oriented Haskell Coma Scale Motor: Obeys Commands Haskell Coma Scale Total: 15 - Psychological Associated symptoms: Anxious - Skin Skin Temperature: Warm Skin Moisture: Dry Skin Color: Erythema Skin irregularity: Rash - Urticarial rash distributed to trunk and extremities <TIMOTEO DOWNING - Last Filed: 10/16/19 23:07> - Vital signs Vitals: Temp Pulse Resp BP Pulse Ox 98.1 F 146 H 21 H 166/97 H 100 10/16/19 22:12 10/16/19 22:12 10/16/19 22:12 10/16/19 22:12 10/16/19 22:12 Course - Laboratory Result Diagrams: 10/16/19 22:51 10/16/19 22:51 <TIMOTEO DOWNING - Last Filed: 10/16/19 23:07> - Laboratory Result Diagrams: 10/16/19 22:51 10/16/19 22:51 <RONEY DONOVAN - Last Filed: 10/17/19 00:58> - Re-evaluation Re-evalutation: 10/16/19 22:[address] stanford regarding patient presentation and duration. Agrees with plan of care at this time. Does not advise giving epinephrine. Patient without any angioedema. 10/16/19 23:08 Heart rate improved now at 122, and no tachypnea, oxygen saturation 100%. (TIMOTEO DOWNING) 10/16/19 23:44 Report received on patient. Patient in no distress, no angioedema. No stridor. Lung sounds are clear to auscultation. Still with slight urticaria on the left arm but no other visible rash at this time. Mildly tachycardic heart rate increases when I come in the room to 120 but it was 92 just prior to my arrival at the room. We will continue to monitor patient for improvement. She has prescriptions from yesterday but did not start them today until just prior to coming to the emergency department. 10/17/19 00:58 Patient heart rate is 85, she is in no distress. Urticaria have resolved. No angioedema no stridor no shortness of breath. Will discharge home with return instructions (RONEY DONOVAN) - Vital Signs Vital signs: Temp Pulse Resp BP Pulse Ox 98.1 F 146 H 19 124/70 100 10/16/19 22:16 10/16/19 22:12 10/17/19 00:02 10/17/19 00:02 10/17/19 00:02 - Laboratory Laboratory results interpreted by me: 10/16/19 10/16/19 22:51 22:51 WBC 20.0 H RBC 5.52 H MCV 75 L MCH 24.2 L RDW 17.8 H Seg Neuts % (Manual) 89 H Lymphocytes % (Manual) 8 L Abs Neuts (Manual) 17.8 H Carbon Dioxide 20 L Glucose 155 H Calcium 10.5 H Total Protein 9.1 H Albumin 5.2 H Discharge <TIMOTEO DOWNING - Last Filed: 10/16/19 23:07> <RONEY DONOVAN - Last Filed: 10/17/19 00:58> - Discharge Clinical Impression: Allergic reaction Qualifiers: Encounter type: subsequent encounter Qualified Code(s): T78.40XD - Allergy, unspecified, subsequent encounter Condition: Stable Disposition: HOME, SELF-CARE Additional Instructions: Continue previous prescriptions. Make sure you are taking Benadryl 25 to 50 mg 3-4 times daily over the next 5 days. Follow-up with PCP for reevaluation return if condition worsens Forms: Return to Work
[2019-10-16 23:05] LABS: HEMATOCRIT 41.7 % (36.0-47.0); HEMOGLOBIN 13.4 g/dL (12.0-15.5); MEAN CORPUSCULAR HEMOGLOBIN 24.2 pg (27.0-33.4); MEAN CORPUSCULAR HGB CONC 32.1 g/dL (32.0-36.0); MEAN CORPUSCULAR VOLUME 75 fl (80-97); PLATELET COUNT 393 10^3/uL (150-450); RED BLOOD COUNT 5.52 10^6/uL (3.72-5.28); RED CELL DISTRIBUTION WIDTH 17.8 % (11.5-14.0)
[2019-10-16 23:21] LABS: ALBUMIN 5.2 g/dL (3.5-5.0); ALKALINE PHOSPHATASE 65 U/L (38-126); ANION GAP 15 (5-19); ASPARTATE AMINO TRANSFERASE 31 U/L (14-36); BILIRUBIN,TOTAL 0.7 mg/dL (0.2-1.3); BLOOD UREA NITROGEN 14 mg/dL (7-20); CALCIUM 10.5 mg/dL (8.4-10.2); CARBON DIOXIDE 20 mmol/L (22-30); CHLORIDE 103 mmol/L (98-107); GLUCOSE 155 mg/dL (75-110); POTASSIUM 4.3 mmol/L (3.6-5.0); TOTAL PROTEIN 9.1 g/dL (6.3-8.2)
[2019-10-16 23:26] LABS: ABSOLUTE LYMPHOCYTES# (MANUAL) 1.6 10^3/uL (0.5-4.7); ABSOLUTE MONOCYTES # (MANUAL) 0.6 10^3/uL (0.1-1.4); BASOPHILS % (MANUAL) 0 % (0-2); EOSINOPHILS % (MANUAL) 0 % (0-6); LYMPHOCYTES % (MANUAL) 8 % (13-45); MONOCYTES % (MANUAL) 3 % (3-13); SEGMENTED NEUTROPHILS % (MAN) 89 % (42-78); TOTAL CELLS COUNTED 100
[2019-10-16 23:27] LABS: ANISOCYTOSIS 1+; OVALOCYTES SLIGHT; PLATELET COMMENT ADEQUATE
[2019-10-16 23:53] LABS: URINE AMPHETAMINES SCREEN NEGATIVE; URINE BARBITURATES SCREEN NEGATIVE; URINE BENZODIAZEPINES SCREEN NEGATIVE; URINE COCAINE SCREEN NEGATIVE; URINE MARIJUANA (THC) SCREEN NEGATIVE; URINE METHADONE SCREEN NEGATIVE; URINE PHENCYCLIDINE SCREEN NEGATIVE
[2019-10-17 01:09] VITALS: BP 126/70
--- NOTE | 2019-10-17 07:20 | EKG REPORT ---
SEVERITY:- ABNORMAL ECG - SINUS TACHYCARDIA ABNORMAL Q SUGGESTS ANTERIOR INFARCT INFERIOR Q WAVES, PROBABLY NORMAL VARIATION NONSPECIFIC ST-T CHANGES- ANTEROLATERAL LEADS : Confirmed by: Pepe Moyer MD 17-Oct-2019 07:19:47
== END 2019-10-17 01:05 | disposition home or self-care (01) ==
LOC: ER 22:05
DX: T78.40XA Allergy, unspecified, initial encounter (principal); L50.9 Urticaria, unspecified; X58.XXXA Exposure to other specified factors, initial encounter; F41.9 Anxiety disorder, unspecified; R00.0 Tachycardia, unspecified; J45.909 Unspecified asthma, uncomplicated
CPT/HCPCS: 93005; 99283; 96361; 96374; 96375; 36415; 83735; 84443; 85025; 80053; 80307; 93010; J1200; J2060; J7030; S0028

== ENCOUNTER 2019-10-18 07:50 | Emergency (ER) | payer SELFPAY ==
--- NOTE | 2019-10-18 09:14 | ER Document Report ---
HPI - HPI Time Seen by Provider: 10/18/19 08:30 Pain Level: Denies Context: Patient is a 24-year-old female who presents emergency department with a chief complaint of a cough, shortness of breath, and difficulty breathing. Patient states that she took her albuterol inhaler at home and had relief of her symptoms. She ended up coming to the emergency department because her discharge paperwork said to return if she was short of breath. Patient states that the Benadryl she took from when she was here has helped. Surgical history includes the skin graft. Patient has a history of asthma. - ROS Systems Reviewed and Negative: Yes All other systems reviewed and negative - CONSTITUTIONAL Constitutional: DENIES: Fever, Chills - EENT EENT: DENIES: Sore Throat, Ear Pain, Nasal Drainage-Clear, Nasal Drainage- Purulent, Congestion, Eye problems - CARDIOVASCULAR Cardiovascular: DENIES: Chest pain - RESPIRATORY Respiratory: DENIES: Trouble Breathing, Coughing - GASTROINTESTINAL Gastrointestinal: DENIES: Abdominal Pain, Nausea, Patient vomiting - REPRODUCTIVE Reproductive: DENIES: : - MUSCULOSKELETAL Musculoskeletal: DENIES: Extremity pain - DERM Skin Color: Normal Skin Problems: None Past Medical History - Social History Smoking Status: Unknown if Ever Smoked Frequency of alcohol use: None Drug Abuse: None Family History: None Patient has homicidal ideation: No - Past Medical History Cardiac Medical History: Reports: Hx Hypertension Pulmonary Medical History: Reports: Hx Asthma Renal/ Medical History: Denies: Hx Peritoneal Dialysis Past Surgical History: Reports: Other - Skin graft - Immunizations Immunizations up to date: Yes Hx Diphtheria, Pertussis, Tetanus Vaccination: Yes Vertical Provider Document - CONSTITUTIONAL Agree With Documented VS: Yes Exam Limitations: No Limitations General Appearance: No Apparent Distress - INFECTION CONTROL TRAVEL OUTSIDE OF THE [place] IN LAST 30 DAYS: No - HEENT HEENT: Atraumatic, Normocephalic, PERRLA - NECK Neck: Normal Inspection - RESPIRATORY Respiratory: Breath Sounds Normal, No Respiratory Distress - CARDIOVASCULAR Cardiovascular: Regular Rate, Regular Rhythm Pulses: Normal: Radial - GI/ABDOMEN Gastrointestinal: Abdomen Soft, Abdomen Non-Tender - MUSCULOSKELETAL/EXTREMETIES Musculoskeletal/Extremeties: FROM - NEURO Level of Consciousness: Awake, Alert, Appropriate - DERM Integumentary: Warm, Dry, No Rash Course - Re-evaluation Re-evalutation: 10/18/19 Patient with some symptoms are now clear. I will place patient on Pepcid so she does not have to take Benadryl. She states that Benadryl makes her sleepy. We will also prescribe her Symbicort. She plans to follow-up with primary care provider when she has insurance. Have a low suspicion for pneumonia, acute asthma exacerbation, or any life-threatening etiology at this time follow-up precautions were given. Verbal discharge instructions were given to the patient. They verbalized understanding. They are stable for discharge. - Vital Signs Vital signs: Temp Pulse Resp BP Pulse Ox 98 F 84 18 148/93 H 100 10/18/19 08:29 10/18/19 07:51 10/18/19 07:51 10/18/19 07:51 10/18/19 07:51 Discharge - Discharge Clinical Impression: Shortness of breath Condition: Stable Disposition: HOME, SELF-CARE Instructions: Asthma (OM), Inhaled Bronchodilators (OM) Additional Instructions: Your seen today in the emergency department for shortness of breath. Your symptoms improved with your albuterol inhaler. You are being prescribed your Symbicort and your albuterol inhaler. Please get these prescriptions filled. You can take Pepcid for allergies. You can also buy this medication [id number]. Prescriptions: Famotidine [Pepcid 20 mg Tablet] 20 mg PO BID #60 tablet Albuterol Sulfate [Proair HFA Inhalation Aerosol 8.5 gm MDI] 2 puff IH Q4H PRN #1 mdi PRN Reason: Budesonide/Formoterol Fumarate [Symbicort Hfa 160-4.5 Mcg Inhaler 6 gm] 1 puff IH Q12 #1 inhaler
[2019-10-18 09:38] VITALS: BP 134/92
== END 2019-10-18 09:39 | disposition home or self-care (01) ==
LOC: ER 07:50
DX: J45.909 Unspecified asthma, uncomplicated (principal); R05 Cough; R06.02 Shortness of breath; Z79.899 Other long term (current) drug therapy; I10 Essential (primary) hypertension
CPT/HCPCS: 99283

== ENCOUNTER 2020-02-05 10:26 | Emergency (ER) | payer SELFPAY ==
--- NOTE | 2020-02-05 12:51 | ER Document Report ---
ED General - General Chief Complaint: Diarrhea Stated Complaint: DIARRHEA Notes: 24-year-old female with past medical history of asthma and anxiety presenting with onset of diarrhea at 3 a.m. after she ate [employer]. She has had 5 episodes of watery, non bloody diarrhea since 3 AM. Has not taken anything for the diarrhea. Has abdominal cramping prior to having the diarrhea. She denies any nausea or vomiting. Denies any fevers or chills. No blood in her stool. Takes lorazepam for her anxiety. TRAVEL OUTSIDE OF THE [place] IN LAST 30 DAYS: No - Related Data Allergies/Adverse Reactions: No Known Allergies Allergy (Verified 10/25/18 07:42) Past Medical History - Social History Smoking Status: Never Smoker Frequency of alcohol use: None Drug Abuse: None Family History: None - Past Medical History Cardiac Medical History: Reports: Hx Hypertension Pulmonary Medical History: Reports: Hx Asthma Renal/ Medical History: Denies: Hx Peritoneal Dialysis Past Surgical History: Reports: Other - Skin graft - Immunizations Immunizations up to date: Yes Hx Diphtheria, Pertussis, Tetanus Vaccination: Yes Review of Systems - Review of Systems Constitutional: No symptoms reported EENT: No symptoms reported Cardiovascular: No symptoms reported Respiratory: No symptoms reported Gastrointestinal: See HPI Genitourinary: No symptoms reported Female Genitourinary: No symptoms reported Musculoskeletal: No symptoms reported Skin: No symptoms reported Hematologic/Lymphatic: No symptoms reported Neurological/Psychological: No symptoms reported Physical Exam - Vital signs Vitals: Temp Pulse Resp BP Pulse Ox 98.6 F 118 H 18 145/91 H 98 02/05/20 11:02 02/05/20 11:02 02/05/20 11:02 02/05/20 11:02 02/05/20 11:02 Interpretation: Tachycardic. No: Tachypneic, Febrile - Notes Notes: Adult General: GENERAL: Alert, interacts well. No acute distress HEAD: Normocephalic, atraumatic EYES: Pupils equal, round and reactive to light. Extraocular movements intact. ENT: Airway patent. Nares patent. NECK: Full range of motion. Supple. Trachea midline. No lymphadenopathy. LUNGS: Clear to auscultation bilaterally, no wheezes, rales, or rhonchi. No respiratory distress. Nontender chest wall. HEART: Regular rate and rhythm. No murmurs, rubs or gallops. ABDOMEN: Soft, nontender. Nondistended. (-) Gerald sign. Bowel sounds present in all 4 quadrants. No rebound, guarding or masses. GENITOURINARY: Deferred EXTREMITIES: Moves all 4 extremities spontaneously. BACK: Moves all extremities with full range of motion. NEUROLOGICAL: Alert and oriented x3. Normal speech. Strength 5/ 5 in all extremities. PSYCH: Normal affect, normal mood. SKIN: Warm, dry, normal turgor. No rashes or lesions noted. Course - Re-evaluation Re-evalutation: 02/05/20 12:59 Patient in no acute distress, nontoxic in appearance resting peacefully in the bed. Physical exam is benign. She has not taken anything to help her symptoms. Is currently in no pain. Upon further review heart rates she does typically run in the 100s. She is afebrile, not tachypneic. Has no current abdominal pain. She is able to handle fluids oral. Denies any nausea. I will go ahead and discharge the patient with gastroenteritis. She is able to handle oral fluids. She is also hungry, states her stomach is growling. I do not feel that IV fluids are indicated at this time as she is able to handle fluids orally. I discussed with her the use of Bentyl. She can also use Imodium [id number]. I also recommend a follow-[place] [facility] [place] 48 [place]. Also discussed return precautions to include worsening symptoms or development of new symptoms. Patient acknowledges and verbalizes understanding of instructions and plan. All questions answered. - Vital Signs Vital signs: Temp Pulse Resp BP Pulse Ox 98.6 F 101 H 16 132/80 H 100 02/05/20 11:02 02/05/20 13:15 02/05/20 13:15 02/05/20 13:15 02/05/20 13:15 Discharge - Discharge Clinical Impression: Gastroenteritis Condition: Stable Disposition: HOME, SELF-CARE Instructions: Gastroenteritis (adult) (REPLACED BY [facility]) Additional Instructions: Your symptoms are likely due to a viral illness and should resolve in the next several days. You can take [id number] loperamide also known as Imodium as needed for diarrhea per box instructions. Continue to stay hydrated with plenty of solution such as Gatorade or Pedialyte. You are being prescribed Bentyl to take as needed for abdominal pain. Please return if you develop severe abdominal pain, pass out, become unable to tolerate any oral fluids for 12 more hours, or any other symptoms that are concerning to you. I also recommend you follow up with your primary care as soon as possible. Prescriptions: Dicyclomine HCl [Bentyl 20 mg Tablet] 20 mg PO QID #40 tablet Forms: Return to Work
[2020-02-05 13:24] VITALS: BP 132/80
== END 2020-02-05 13:15 | disposition home or self-care (01) ==
LOC: ER 10:26
DX: K52.9 Noninfective gastroenteritis and colitis, unspecified (principal); J45.909 Unspecified asthma, uncomplicated; I10 Essential (primary) hypertension; F41.9 Anxiety disorder, unspecified; Z79.899 Other long term (current) drug therapy
CPT/HCPCS: 99283